=== PATIENT | female | born 1960 | race Caucasian/White ===

== ENCOUNTER 2017-07-31 12:18 | Outpatient (RCR) | payer BC | END 2017-10-29 | disposition home or self-care (01) | LOC: CARD 12:18 | PROVIDERS: ATTEND Family Medicine | DX: R55 Syncope and collapse (principal) | CPT/HCPCS: 93225; 93226 ==

== ENCOUNTER 2021-12-23 14:54 | Outpatient (CLI) | payer BC | END 2021-12-23 15:15 | LOC: SLEEP 14:54 | PROVIDERS: ATTEND Otolaryngology Otolaryngology/Facial Plastic Surgery | DX: G47.33 Obstructive sleep apnea (adult) (pediatric) (principal) | CPT/HCPCS: G0399 ==